=== PATIENT | male | born 1980 | race Caucasian/White ===

== ENCOUNTER 2024-06-26 06:06 | Emergency (ER) | payer OTHER ==
[2024-06-26 06:28] VITALS: BP 155/81; PULSE 84; RESP 18; TEMP 97.5; BMI 55.0
[2024-06-26] MEDS ORDERED: ONDANSETRON 4 MG/2 ML VIAL ONE (06:37)
[2024-06-26] MEDS ORDERED: KETOROLAC TROMETHAMINE 30 MG/1 ML VIAL ONE (06:37)
[2024-06-26] MEDS: KETOROLAC TROMETHAMINE 30 MG/1 ML VIAL IVPUSH ONE (06:45)
[2024-06-26] MEDS: ONDANSETRON 4 MG/2 ML VIAL IVPB ONE (06:46)
[2024-06-26] MEDS: SODIUM CHLORIDE 1,000 ML IV STA (06:46)
[2024-06-26 08:18] LABS: HEMATOCRIT 48.3 % (35.4-49); HEMOGLOBIN 15.8 G/dL (11.7-16.9); MCH 28.7 pg (25.7-33.7); MCHC 32.8 g/dl (32.0-35.9); MEAN CELL VOLUME 87.6 fl (80-96); MEAN PLT VOLUME 10.5 fl (7.5-11.1); PLATELET COUNT 164.6 10^3/uL (134-434); RBC 5.51 10^6/uL (4.00-5.60); RDW 14.5 % (11.9-15.9); WHITE BLOOD COUNT 13.8 10^3/uL (4.0-10.8)
[2024-06-26 08:27] LABS: ALBUMIN 4.9 g/dl (3.4-5.0); BILIRUBIN,TOTAL 0.6 mg/dl (0.2-1); CALCIUM 9.7 mg/dl (8.5-10.1); CREATININE 1.6 mg/dl (0.6-1.3); PLATELET ESTIMATE ADEQUATE; TOT PROT 7.8 g/dl (6.4-8.2)
== END 2024-06-26 09:43 | disposition home or self-care (01) ==
LOC: FER 06:06
PROC: 3E0333Z Introduction of Anti-inflammatory into Peripheral Vein, Percutaneous Approach (ICD-10-PCS; principal; 2024-06-26)
PROC: 3E033GC Introduction of Other Therapeutic Substance into Peripheral Vein, Percutaneous Approach (ICD-10-PCS; 2024-06-26)
PROC: 3E0337Z Introduction of Electrolytic and Water Balance Substance into Peripheral Vein, Percutaneous Approach (ICD-10-PCS; 2024-06-26)
DX: R79.89 Other specified abnormal findings of blood chemistry (principal); R10.9 Unspecified abdominal pain; R11.0 Nausea; R35.0 Frequency of micturition; R39.15 Urgency of urination
CPT/HCPCS: 36415; 74176-TC; 80053; 81003; 81015; 85027; 99284-25